=== PATIENT | female | born 1980 | race Caucasian/White ===

== ENCOUNTER → 2025-02-06 | Outpatient (CLI) | payer BC, SELFPAY ==
--- NOTE | 2025-02-06 08:30 | XR_ITS ---
Examination: Screening digital mammography, bilateral Computer aided detection 3-D breast Tomosynthesis, bilateral Date and time of exam: February 06, 2025 0820 hours Comparison July 25, 2022 Indication: Screening Technique: Nonmagnified MLO, CC views of the breasts to been obtained, reconstructed from 3-D Tomosynthesis images. R2 computer aided detection program utilized for evaluation of suspicious masses and/or abnormal calcifications. 3-D Tomosynthesis images obtained. Findings: Scattered areas of fibroglandular density. 17 mm round nodule upper outer right breast mid depth Impression: BI-RADS Category 0: Incomplete: Need additional imaging evaluation Recommend follow-up spot tomographic views of 17 mm nodule upper outer right breast mid depth, partially circumscribed as well as bilateral breast sonography to complete the workup
== END | disposition home or self-care (01) ==
LOC: CDIM 08:06
PROVIDERS: Referring Provider Registered Nurse Pediatrics; Visit Provider Registered Nurse Pediatrics
DX: Z12.31 Encounter for screening mammogram for malignant neoplasm of breast (principal); N63.11 Unspecified lump in the right breast, upper outer quadrant
CPT/HCPCS: 77063; 77067

== ENCOUNTER → 2025-03-06 | Outpatient (CLI) | payer BC, SELFPAY ==
--- NOTE | 2025-03-06 08:45 | XR_ITS ---
Examination: Breast ultrasound complete, bilateral Date and time of exam: March 06, 2025 0842 hours INDICATIONS: Mammogram February 06, 2025 17 mm round nodule upper outer right breast Technique: Real-time grayscale ultrasonographic imaging bilateral breasts, including all 4 quadrants as well as nipple retroareolar and axillary regions. Findings: No cystic or solid mass involving either breast IMPRESSION: BI-RADS Category 1: Negative study
--- NOTE | 2025-03-06 09:45 | XR_ITS ---
Examination: Diagnostic digital mammography, unilateral, right Computer aided detection 3-D breast Tomosynthesis, unilateral Date and time of exam: March 06, 2025, 0902 hours INDICATIONS: Mammogram February 06, 2025 17 mm round nodule upper outer right breast mid depth Technique: Nonmagnified MLO, CC views of the right breast have been obtained, reconstructed from 3-D Tomosynthesis images. R2 computer aided detection program utilized for evaluation of suspicious masses and/or abnormal calcifications. 3-D Tomosynthesis images obtained. Findings: Scattered areas of fibroglandular density. Focal asymmetry remains 17 mm outer right breast on the spot compression views, probably benign Impression: BI-RADS category 3: Probably benign findings Recommend 1 additional 6 month right mammogram follow-up to document stability of focal asymmetry described above
== END | disposition home or self-care (01) ==
LOC: CDIM 08:24
PROVIDERS: PCP Family Medicine; Referring Provider Physician Assistant; Visit Provider Physician Assistant
DX: R92.331 Mammographic heterogeneous density, right breast (principal); N64.89 Other specified disorders of breast
CPT/HCPCS: 76641; 77061; 77065; G0279